=== PATIENT | female | born 1945 | race Caucasian/White ===

== ENCOUNTER 2018-06-20 05:42 | Inpatient (IN) | payer MEDICARE, MEDICAID ==
[~2018-06-20] VITALS: Ht 170.2 cm; Wt 73.6 kg
[2018-06-20] MEDS ORDERED: normal saline 1000ML IV soln IVB ONE (06:10)
[2018-06-20 07:22] LABS: BASOPHILS # (AUTO) 0.1 X10'3 (0-0.2); BASOPHILS % (AUTO) 1.1 % (0-1); EOSINOPHILS # (AUTO) 0.9 X10'3 (0-0.9); EOSINOPHILS % (AUTO) 9.2 % (0-6); HEMATOCRIT 36.7 % (35.0-45.0); HEMOGLOBIN 12.1 g/dl (12.0-16.0); LYMPHOCYTES # (AUTO) 3.1 X10'3 (1.1-4.8); LYMPHOCYTES % (AUTO) 33.7 % (21-51); MEAN CORPUSCULAR HEMOGLOBIN 29.5 PG (27.0-31.0); MEAN CORPUSCULAR VOLUME 89.2 FL (78-98); MEAN PLATELET VOLUME 7.5 FL (7.4-10.4); MONOCYTES # (AUTO) 0.9 X10'3 (0-0.9); MONOCYTES % (AUTO) 9.6 % (2-12); NEUTROPHILS # (AUTO) 4.3 X10'3 (1.8-7.7); NEUTROPHILS % (AUTO) 46.4 % (42-75); PLATELET COUNT 363 X10'3 (140-440); RED BLOOD COUNT 4.11 X10'6 (4.20-5.60); RED CELL DISTRIBUTION WIDTH 13.8 % (11.5-14.5); WHITE BLOOD COUNT 9.3 X10'3 (4.5-11.0)
[2018-06-20 07:29] LABS: INR 3.5 INR; PROTHROMBIN TIME 34.8 SECONDS (9.0-12.0)
[2018-06-20 07:37] LABS: ALANINE AMINOTRANSFERASE 24 U/L (12-78); ALBUMIN 3.3 G/DL (3.4-5.0); ALBUMIN/GLOBULIN RATIO 0.9 (1.1-1.5); ALKALINE PHOSPHATASE 100 IU/L (46-116); ANION GAP 6 (8-16); ASPARTATE AMINO TRANSFERASE 13 U/L (10-37); BILIRUBIN,TOTAL 0.2 MG/DL (0.1-1.0); BLOOD UREA NITROGEN 24 MG/DL (7-18); BUN/CREATININE RATIO 29.3 (6.6-38.0); CALCIUM 8.8 MG/DL (8.5-10.1); CHLORIDE 105 MMOL/L (99-107); CREATININE 0.82 MG/DL (0.40-0.90); GLUCOSE 99 MG/DL (70-104); LIPASE 327 U/L (73-393); POTASSIUM 4.3 MMOL/L (3.5-5.1); SODIUM 139 MMOL/L (135-145); TOTAL CARBON DIOXIDE 28.4 MMOL/L (24-32); TOTAL PROTEIN 7.1 G/DL (6.4-8.2); eGFR 69 ML/MIN
[2018-06-20] MEDS ORDERED: iohexol 300mg/ml 100ml inj. ONE ×2 (07:41→09:31)
[2018-06-20 09:03] LABS: CLARITY,URINE SLIGHTLY CLOUDY (Clear); COLOR,URINE YELLOW (Yellow); GLUCOSE, URINE NEGATIVE (Neg); KETONES,URINE NEGATIVE (Neg); LEUKOCYTE ESTERASE ,URINE SMALL (Neg); NITRITES, URINE NEGATIVE (Neg); OCCULT BLOOD,URINE SMALL (Neg); PROTEIN,URINE NEGATIVE (Neg); UA COLLECTION TYPE CLN CATCH MIDSTREAM; UROBILINOGEN,URINE 0.2 E.U/dL (0.2-1.0)
[2018-06-20 09:09] LABS: HYALINE CASTS 0-3 /LPF (NEGATIVE); MUCUS STRANDS FEW /LPF (Neg); SQUAMOUS EPITHELIAL CELL,UR MODERATE /LPF (FEW)
[2018-06-20 09:10] LABS: BACTERIA,URINE 1+ /HPF (Neg); WBC CLUMPS,URINE FEW /HPF (NEGATIVE)
[2018-06-20] MEDS ORDERED: levoFLOXACIN-Levaquin 500mg/D5 100 ML IV ONE (09:55)
[2018-06-20] MEDS ORDERED: metroNIDAZOLE-Flagyl 500mg/NS 100 ML IV ONE (09:55)
[2018-06-20] MEDS ORDERED: mag hydrox/Alum hydrox/simeth 30ml oral suspension PO PRN (10:30)
[2018-06-20] MEDS ORDERED: ondansetron/PF 4mg/2ml inj IV PRN (10:30)
[2018-06-20] MEDS ORDERED: magnesium hydroxide 30ml (MOM) UD suspension PO PRN (10:30)
[2018-06-20] MEDS ORDERED: acetaminophen 325mg tablet PO PRN (10:30)
[2018-06-20] MEDS ORDERED: diatrozoate meglu/diatrozoate sod (37% iodine) 120ML oral solution ONE ×2 (11:21)
[2018-06-20] MEDS: normal saline 1000ml 1,000 ML IV SCH (12:00)
[2018-06-20 12:55] VITALS: BP 148/66
[2018-06-20] MEDS: morphine 2 MG/ML inj. syringe IV PRN ×2 (13:42→20:11)
[2018-06-20] MEDS: LORazepam 2 mg/ml vial IV PRN ×2 (14:22→20:05)
[2018-06-20 14:55] VITALS: BP 137/50
[2018-06-20] MEDS: metroNIDAZOLE-Flagyl 500mg/NS 100 ML IV SCH (15:36)
[2018-06-20] MEDS ORDERED: MELA3TAB PO (17:51)
[2018-06-20] MEDS ORDERED: WARF-55 PO (17:51)
[2018-06-20] MEDS ORDERED: METO-384 PO (17:51)
[2018-06-20] MEDS ORDERED: ASPI-1265 PO (17:51)
[2018-06-20] MEDS ORDERED: PARO30TA4 PO (17:51)
[2018-06-20] MEDS ORDERED: FAMO20TA8 PO (17:51)
[2018-06-20] MEDS ORDERED: HYDR-3965 PO (17:51)
[2018-06-20] MEDS ORDERED: HALO1TAB PO (17:51)
[2018-06-20] MEDS ORDERED: POTA10CA44 PO (17:51)
[2018-06-20] MEDS ORDERED: VITC500T PO (17:51)
[2018-06-20 20:00] VITALS: BP 150/61
[2018-06-20] MEDS ORDERED: HYDROcodone/acetaminophen 5mg/325mg tablet PO PRN (20:00)
[2018-06-20] MEDS: diatr meglu/diatrizoate 30ml oral sol.-(3 dose) bottle PO SCH (22:01)
[2018-06-20] MEDS: Melatonin 3mg tablet PO SCH (22:01)
[2018-06-20] MEDS: haloperidol 1mg tablet PO SCH (22:01)
[2018-06-20] MEDS: famotidine 20mg tablet PO SCH (22:01)
[2018-06-20] MEDS: heparin, porcine 5000 units/ml vial SQ SCH (22:03)
[2018-06-21] VITALS: BP 140/62
[2018-06-21] MEDS: normal saline 1000ml 1,000 ML IV SCH ×3 (00:05→13:49)
[2018-06-21] MEDS: metroNIDAZOLE-Flagyl 500mg/NS 100 ML IV SCH ×2 (00:05→09:48)
[2018-06-21] MEDS: morphine 2 MG/ML inj. syringe IV PRN ×2 (00:56→20:17)
[2018-06-21 05:52] LABS: BASOPHILS # (AUTO) 0.1 X10'3 (0-0.2); BASOPHILS % (AUTO) 1.3 % (0-1); EOSINOPHILS # (AUTO) 0.7 X10'3 (0-0.9); EOSINOPHILS % (AUTO) 7.9 % (0-6); HEMATOCRIT 34.4 % (35.0-45.0); HEMOGLOBIN 11.6 g/dl (12.0-16.0); LYMPHOCYTES # (AUTO) 2.5 X10'3 (1.1-4.8); LYMPHOCYTES % (AUTO) 29.3 % (21-51); MEAN CORPUSCULAR HEMOGLOBIN 30.1 PG (27.0-31.0); MEAN CORPUSCULAR HGB CONC 33.8 % (33.0-36.5); MEAN CORPUSCULAR VOLUME 89.1 FL (78-98); MEAN PLATELET VOLUME 8.2 FL (7.4-10.4); MONOCYTES # (AUTO) 0.7 X10'3 (0-0.9); MONOCYTES % (AUTO) 7.9 % (2-12); NEUTROPHILS # (AUTO) 4.6 X10'3 (1.8-7.7); NEUTROPHILS % (AUTO) 53.6 % (42-75); PLATELET COUNT 332 X10'3 (140-440); RED BLOOD COUNT 3.86 X10'6 (4.20-5.60); RED CELL DISTRIBUTION WIDTH 13.8 % (11.5-14.5); WHITE BLOOD COUNT 8.6 X10'3 (4.5-11.0)
[2018-06-21 06:00] LABS: ANION GAP 8 (8-16); BLOOD UREA NITROGEN 12 MG/DL (7-18); BUN/CREATININE RATIO 16.9 (6.6-38.0); CALCIUM 8.6 MG/DL (8.5-10.1); CHLORIDE 107 MMOL/L (99-107); CREATININE 0.71 MG/DL (0.40-0.90); GLUCOSE 93 MG/DL (70-104); SODIUM 141 MMOL/L (135-145); TOTAL CARBON DIOXIDE 25.6 MMOL/L (24-32); eGFR 81 ML/MIN
[2018-06-21 06:06] LABS: POTASSIUM 4.2 MMOL/L (3.5-5.1)
[2018-06-21 08:00] VITALS: BP 137/56
[2018-06-21] MEDS: aspirin 81mg tablet.DR PO SCH (08:28)
[2018-06-21] MEDS: famotidine 20mg tablet PO SCH ×2 (08:28→20:16)
[2018-06-21] MEDS: PARoxetine 20mg tablet PO SCH (08:28)
[2018-06-21] MEDS: ascorbic acid 500mg tablet PO SCH (08:29)
[2018-06-21] MEDS: diatr meglu/diatrizoate 30ml oral sol.-(3 dose) bottle PO SCH ×2 (08:29→08:59)
[2018-06-21] MEDS: metoprolol succinate 25mg (24-HOUR) SR. Tablet PO SCH (08:29)
[2018-06-21] MEDS: potassium Cl 20 mEq SR tablet PO SCH (08:29)
[2018-06-21] MEDS: levoFLOXACIN-Levaquin 500mg/D5 100 ML IV SCH (08:30)
[2018-06-21] MEDS: heparin, porcine 5000 units/ml vial SQ SCH ×2 (08:30→20:17)
[2018-06-21] MEDS ORDERED: iohexol 300mg/ml 100ml inj. ONE (08:57)
[2018-06-21] MEDS: haloperidol 1mg tablet PO SCH ×2 (08:59→20:16)
[2018-06-21] MEDS: LORazepam 2 mg/ml vial IV PRN ×3 (09:48→22:52)
[2018-06-21 11:00] VITALS: BP 138/49
[2018-06-21 18:00] VITALS: BP 160/64
[2018-06-21] MEDS: lactobacillus rhamnosus 10,000 MMU CELLS/CAPSULE PO SCH (20:16)
[2018-06-21] MEDS: Melatonin 3mg tablet PO SCH (20:16)
[2018-06-22] VITALS: BP 116/47
[2018-06-22] MEDS: metroNIDAZOLE 500mg tablet PO SCH ×2 (00:21→08:22)
[2018-06-22] MEDS: morphine 2 MG/ML inj. syringe IV PRN (00:25)
[2018-06-22] MEDS: normal saline 1000ml 1,000 ML IV SCH ×2 (00:31→12:30)
[2018-06-22 04:59] LABS: BASOPHILS # (AUTO) 0.2 X10'3 (0-0.2); BASOPHILS % (AUTO) 2.1 % (0-1); EOSINOPHILS # (AUTO) 0.7 X10'3 (0-0.9); EOSINOPHILS % (AUTO) 7.8 % (0-6); HEMATOCRIT 34.3 % (35.0-45.0); HEMOGLOBIN 11.4 g/dl (12.0-16.0); LYMPHOCYTES # (AUTO) 2.9 X10'3 (1.1-4.8); LYMPHOCYTES % (AUTO) 34.1 % (21-51); MEAN CORPUSCULAR HEMOGLOBIN 29.6 PG (27.0-31.0); MEAN CORPUSCULAR HGB CONC 33.1 % (33.0-36.5); MEAN CORPUSCULAR VOLUME 89.5 FL (78-98); MEAN PLATELET VOLUME 8.1 FL (7.4-10.4); MONOCYTES # (AUTO) 0.8 X10'3 (0-0.9); MONOCYTES % (AUTO) 9.3 % (2-12); NEUTROPHILS % (AUTO) 46.7 % (42-75); PLATELET COUNT 322 X10'3 (140-440); RED BLOOD COUNT 3.83 X10'6 (4.20-5.60); RED CELL DISTRIBUTION WIDTH 13.5 % (11.5-14.5); WHITE BLOOD COUNT 8.5 X10'3 (4.5-11.0)
[2018-06-22 05:25] LABS: ALBUMIN 2.9 G/DL (3.4-5.0); ANION GAP 9 (8-16); BLOOD UREA NITROGEN 12 MG/DL (7-18); BUN/CREATININE RATIO 15.6 (6.6-38.0); CALCIUM 8.3 MG/DL (8.5-10.1); CHLORIDE 108 MMOL/L (99-107); CREATININE 0.77 MG/DL (0.40-0.90); GLUCOSE 90 MG/DL (70-104); POTASSIUM 3.7 MMOL/L (3.5-5.1); SODIUM 142 MMOL/L (135-145); TOTAL CARBON DIOXIDE 25.4 MMOL/L (24-32); eGFR 74 ML/MIN
[2018-06-22 07:20] VITALS: BP 108/63
[2018-06-22] MEDS: haloperidol 1mg tablet PO SCH (08:21)
[2018-06-22] MEDS: ascorbic acid 500mg tablet PO SCH (08:22)
[2018-06-22] MEDS: potassium Cl 20 mEq SR tablet PO SCH (08:22)
[2018-06-22] MEDS: famotidine 20mg tablet PO SCH (08:22)
[2018-06-22] MEDS: aspirin 81mg tablet.DR PO SCH (08:22)
[2018-06-22] MEDS: lactobacillus rhamnosus 10,000 MMU CELLS/CAPSULE PO SCH (08:23)
[2018-06-22] MEDS: metoprolol succinate 25mg (24-HOUR) SR. Tablet PO SCH (08:23)
[2018-06-22] MEDS: PARoxetine 20mg tablet PO SCH (08:23)
[2018-06-22] MEDS: levoFLOXACIN-Levaquin 500mg/D5 100 ML IV SCH (08:24)
[2018-06-22] MEDS: heparin, porcine 5000 units/ml vial SQ SCH (08:26)
[2018-06-22] MEDS: LORazepam 2 mg/ml vial IV PRN (10:08)
[2018-06-22 11:35] VITALS: BP 118/53
== END 2018-06-22 14:23 | DRG 690 ==
LOC: ER 05:42 → ED HOLD 10:30 → EDBEDREQ 10:50 → PCU 3S 12:47 → SUR 3N 15:02
PROVIDERS: ADMIT Family Medicine; ATTEND Family Medicine
PROC: BW211ZZ Computerized Tomography (CT Scan) of Abdomen and Pelvis using Low Osmolar Contrast (ICD-10-PCS; principal; 2018-06-21)
DX: N39.0 Urinary tract infection, site not specified (principal); D68.69 Other thrombophilia; K52.9 Noninfective gastroenteritis and colitis, unspecified; B96.20 Unspecified Escherichia coli [E. coli] as the cause of diseases classified elsewhere; F03.90 Unspecified dementia, unspecified severity, without behavioral disturbance, psychotic disturbance, mood disturbance, and anxiety; F20.9 Schizophrenia, unspecified; F41.9 Anxiety disorder, unspecified; G89.29 Other chronic pain; I10 Essential (primary) hypertension; T45.515A Adverse effect of anticoagulants, initial encounter; Z93.3 Colostomy status; Z88.2 Allergy status to sulfonamides; Z79.01 Long term (current) use of anticoagulants; Z86.73 Personal history of transient ischemic attack (TIA), and cerebral infarction without residual deficits; Y92.89 Other specified places as the place of occurrence of the external cause
CPT/HCPCS: 36415; 74176; 74177; 80048; 80053; 81001; 83690; 85025; 85610; 87070; 87077; 87088; 87186; 97116; 97161; 97530; 99285; J1644; J1956; J2060; J2270; J3490; J7030; Q9963; Q9967

== ENCOUNTER 2018-07-16 15:16 | Day surgery (SDC) | payer MEDICARE, MEDICAID ==
[~2018-07-16] VITALS: Ht 170.2 cm; Wt 63.6 kg
[~2018-07-16 15:16] MED LIST: ASPI-1265 PO; FAMO20TA8 PO; HALO1TAB PO; HYDR-3965 PO; MELA3TAB PO; METO-384 PO; PARO30TA4 PO; POTA10CA44 PO; VITC500T PO; WARF-55 PO
[2018-07-16 15:30] VITALS: BP 149/78
[2018-07-16] MEDS ORDERED: MAG-54 PO (15:42)
[2018-07-16] MEDS ORDERED: MAGN400O6 PO (15:43)
[2018-07-16] MEDS ORDERED: POLY17PO10 PO (15:43)
[2018-07-16] MEDS ORDERED: fentaNYL/PF 50MCG/1 ML 2ML syringe ONE (15:44)
[2018-07-16] MEDS ORDERED: NA P133E4 RC (15:44)
[2018-07-16] MEDS ORDERED: MIDAZolam 5mg/5ml vial ONE (15:44)
[2018-07-16 16:32] VITALS: BP 140/73
[2018-07-16 16:42] VITALS: BP 152/76
[2018-07-16 16:52] VITALS: BP 149/73
== END 2018-07-16 17:00 | disposition home or self-care (01) ==
LOC: GI LAB 15:16
PROVIDERS: ATTEND Internal Medicine Gastroenterology
DX: D12.4 Benign neoplasm of descending colon (principal); K62.1 Rectal polyp; K64.8 Other hemorrhoids; Z93.3 Colostomy status
CPT/HCPCS: 44389; 44394; 99153; G0500; J2250; J3010; J7030; 99152; A4620

== ENCOUNTER 2018-10-17 13:45 | Inpatient (IN) | payer MEDICARE, MEDICAID ==
[~2018-10-17] VITALS: Ht 170.2 cm; Wt 63.6 kg
[~2018-10-17 13:45] MED LIST changes: +MAG-54 PO; +MAGN400O6 PO; +NA P133E4 RC; +POLY17PO10 PO
[2018-10-17] MEDS ORDERED: HALO1TAB PO (14:21)
[2018-10-17] MEDS ORDERED: HALO0.5T PO (14:22)
[2018-10-17] MEDS ORDERED: ASCO-23 PO (14:23)
[2018-10-17] MEDS ORDERED: ASPI-1265 PO (14:24)
[2018-10-17 14:25] LABS: BASOPHILS # (AUTO) 0.1 X10'3 (0-0.2); BASOPHILS % (AUTO) 0.9 % (0-1); EOSINOPHILS # (AUTO) 0.9 X10'3 (0-0.9); EOSINOPHILS % (AUTO) 7.3 % (0-6); HEMATOCRIT 40.5 % (35.0-45.0); HEMOGLOBIN 13.4 g/dl (12.0-16.0); LYMPHOCYTES # (AUTO) 2.3 X10'3 (1.1-4.8); LYMPHOCYTES % (AUTO) 19.4 % (21-51); MEAN CORPUSCULAR HEMOGLOBIN 29.7 PG (27.0-31.0); MEAN CORPUSCULAR HGB CONC 33.2 % (33.0-36.5); MEAN CORPUSCULAR VOLUME 89.5 FL (78-98); MEAN PLATELET VOLUME 7.8 FL (7.4-10.4); MONOCYTES # (AUTO) 0.9 X10'3 (0-0.9); MONOCYTES % (AUTO) 8.1 % (2-12); NEUTROPHILS # (AUTO) 7.5 X10'3 (1.8-7.7); NEUTROPHILS % (AUTO) 64.3 % (42-75); PLATELET COUNT 346 X10'3 (140-440); RED BLOOD COUNT 4.52 X10'6 (4.20-5.60); RED CELL DISTRIBUTION WIDTH 13.3 % (11.5-14.5); WHITE BLOOD COUNT 11.6 X10'3 (4.5-11.0)
[2018-10-17] MEDS ORDERED: WARF2.5T PO (14:26)
[2018-10-17] MEDS ORDERED: WARF2TAB PO (14:26)
[2018-10-17] MEDS ORDERED: WARF1TAB PO (14:27)
[2018-10-17] MEDS ORDERED: BISA10SU8 RC (14:27)
[2018-10-17] MEDS ORDERED: FAMO20TA8 PO (14:28)
[2018-10-17] MEDS ORDERED: MELA3TAB PO (14:29)
[2018-10-17] MEDS ORDERED: HYDR-3965 PO (14:30)
[2018-10-17] MEDS ORDERED: METO50TA7 PO (14:31)
[2018-10-17] MEDS ORDERED: PARO-62 PO (14:31)
[2018-10-17] MEDS ORDERED: POTA-82 PO (14:32)
[2018-10-17 14:37] LABS: PROTHROMBIN TIME 28.4 SECONDS (9.0-12.0)
[2018-10-17 14:40] LABS: ALANINE AMINOTRANSFERASE 24 U/L (12-78); ALBUMIN 3.4 G/DL (3.4-5.0); ALBUMIN/GLOBULIN RATIO 0.8 (1.1-1.5); ALKALINE PHOSPHATASE 107 IU/L (46-116); ANION GAP 7 (8-16); ASPARTATE AMINO TRANSFERASE 15 U/L (10-37); BILIRUBIN,TOTAL 0.9 MG/DL (0.1-1.0); BLOOD UREA NITROGEN 17 MG/DL (7-18); BUN/CREATININE RATIO 18.7 (6.6-38.0); CALCIUM 8.8 MG/DL (8.5-10.1); CHLORIDE 103 MMOL/L (99-107); CREATININE 0.91 MG/DL (0.40-0.90); GLUCOSE 123 MG/DL (70-104); POTASSIUM 4.4 MMOL/L (3.5-5.1); SODIUM 136 MMOL/L (135-145); TOTAL CARBON DIOXIDE 26.1 MMOL/L (24-32); TOTAL PROTEIN 7.6 G/DL (6.4-8.2); eGFR 61 ML/MIN
[2018-10-17] MEDS ORDERED: phytonadione inj. 5 MG in normal saline 100ml IV soln 99.5 ML IV ONE (14:40)
[2018-10-17 14:55] LABS: CLARITY,URINE CLOUDY (Clear); COLOR,URINE YELLOW (Yellow); GLUCOSE, URINE NEGATIVE (Neg); KETONES,URINE NEGATIVE (Neg); LEUKOCYTE ESTERASE ,URINE LARGE (Neg); NITRITES, URINE POSITIVE (Neg); OCCULT BLOOD,URINE TRACE-INTACT (Neg); PH,URINE 8.5 (4.8-8.0); PROTEIN,URINE NEGATIVE (Neg); UROBILINOGEN,URINE 0.2 E.U/dL (0.2-1.0)
[2018-10-17 15:00] LABS: UA COLLECTION TYPE CLN CATCH MIDSTREAM
[2018-10-17] MEDS: morphine 4 MG/ML inj SYRINge IV PRN ×3 (15:03→23:04)
[2018-10-17 15:04] LABS: BACTERIA,URINE 3+ /HPF (Neg); SQUAMOUS EPITHELIAL CELL,UR MANY /LPF (FEW)
[2018-10-17 15:05] LABS: WBC,URINE 0-4 /HPF (0-4)
--- NOTE | 2018-10-17 15:07 | NUR ---
relieving RN for break, pt is resting quietly on gurney, resp even and unlabored, medicated per MD order,
--- NOTE | 2018-10-17 15:51 | NUR ---
RAMA GTZ INFORMED OF PT NECK PAIN, ORDERS TO FOLLOW.
--- NOTE | 2018-10-17 16:25 | NUR ---
REMOVED PREVIOUSLY PLACED FOLEYCATH, DUE TO NO OUTPUT, RITCHIE GRAY RN, DANIAL ALVAREZ AND GILDA ANDERSON ASSISTED TO HAVE NEW CATH PLACED VIA STERILE TECHNIQUE
--- NOTE | 2018-10-17 16:35 | NUR ---
PT TO DOWNSTAIRS CT WITH ARC CUTTER AND PT DAUGHTER, PER ORDERS
[2018-10-17 16:57] LABS: CLARITY,URINE CLOUDY (Clear); COLOR,URINE YELLOW (Yellow); GLUCOSE, URINE NEGATIVE (Neg); KETONES,URINE NEGATIVE (Neg); LEUKOCYTE ESTERASE ,URINE SMALL (Neg); NITRITES, URINE NEGATIVE (Neg); OCCULT BLOOD,URINE TRACE-LYSED (Neg); PH,URINE 7.5 (4.8-8.0); PROTEIN,URINE NEGATIVE (Neg); UROBILINOGEN,URINE 0.2 E.U/dL (0.2-1.0)
[2018-10-17 17:07] LABS: BACTERIA,URINE 2+ /HPF (Neg); MUCUS STRANDS MODERATE /LPF (Neg); SQUAMOUS EPITHELIAL CELL,UR MANY /LPF (FEW); UA COLLECTION TYPE FOLEY CATH
--- NOTE | 2018-10-17 17:07 | NUR ---
PT DAUGHTER ASHLEY Raymond# [phone] IS [employer]ICAL P[employer] OF [employer], GAVE HER INFO TO THONY IN REGISTRATION
[2018-10-17] MEDS ORDERED: magnesium 2GM in 50ml NS 50 ML IV PRN ×2 (18:30→22:00)
[2018-10-17] MEDS ORDERED: acetaminophen 325mg tablet PO PRN (18:30)
[2018-10-17] MEDS ORDERED: mag hydrox/Alum hydrox/simeth 30ml oral suspension PO PRN (18:30)
[2018-10-17] MEDS ORDERED: ipratropium/albuterol 3ml nebule NEB PRN (18:30)
[2018-10-17] MEDS ORDERED: ondansetron/PF 4mg/2ml inj IV PRN (18:30)
[2018-10-17] MEDS ORDERED: magnesium 4gm in 100ml NS 100 ML IV PRN ×2 (18:30→22:00)
[2018-10-17] MEDS ORDERED: potassium Cl 40MEQ/NS 500ml 500 ML IV PRN ×4 (18:30→22:00)
[2018-10-17] MEDS ORDERED: magnesium hydroxide 30ml (MOM) UD suspension PO PRN (18:30)
[2018-10-17] MEDS ORDERED: morphine 4 MG/ML inj SYRINge IV PRN ×2 (18:30)
[2018-10-17] MEDS ORDERED: potassium Cl 20 mEq SR tablet PO PRN ×4 (18:30→22:00)
[2018-10-17] MEDS: normal saline 1000ml 1,000 ML IV SCH (19:37)
[2018-10-17] MEDS: CefTRIAXone/D5W-Rocephin 1gm 50 ML IV SCH (19:37)
[2018-10-17] MEDS: lactobacillus rhamnosus 10,000 MMU CELLS/CAPSULE PO SCH (19:37)
[2018-10-17] MEDS: famotidine 20mg tablet PO SCH (19:38)
--- NOTE | 2018-10-17 19:48 | NUR ---
pt sleeping when entering room. easily awakens. IV abx infusing and lab at bedside for cultures and lactic
[2018-10-17] MEDS ORDERED: haloperidol 10mg/5ml UD oral solution PO SCH (20:00)
--- NOTE | 2018-10-17 20:51 | NUR ---
Patient in room ED 1. I have received report from JUSTIN Hanna and had the opportunity to ask questions and assume patient care.
[2018-10-17] MEDS: Melatonin 3mg tablet PO PRN (21:09)
[2018-10-17 21:26] VITALS: BP 187/84
[2018-10-17] MEDS ORDERED: haloperidol 1mg tablet PO SCH (22:00)
[2018-10-17] MEDS ORDERED: magnesium Cl slow-release 64mg tablet PO PRN (22:00)
[2018-10-17] MEDS ORDERED: haloperidol 10mg/5ml UD oral solution PO ONE (22:50)
[2018-10-17 22:54] VITALS: BP 165/67
[2018-10-18] VITALS (18 sets, daily range): BP systolic 117–192; BP diastolic 48–74
[2018-10-18] MEDS: morphine 4 MG/ML inj SYRINge IV PRN ×6 (03:52→22:02)
[2018-10-18] MEDS: normal saline 1000ml 1,000 ML IV SCH ×3 (04:49→19:58)
--- NOTE | 2018-10-18 06:36 | NUR ---
Problems reprioritized. Patient report given, questions answered & plan of care reviewed with JUSTIN Simpson.
[2018-10-18 07:20] LABS: BASOPHILS # (AUTO) 0.1 X10'3 (0-0.2); BASOPHILS % (AUTO) 0.7 % (0-1); EOSINOPHILS # (AUTO) 0.7 X10'3 (0-0.9); EOSINOPHILS % (AUTO) 7.9 % (0-6); HEMATOCRIT 38.5 % (35.0-45.0); HEMOGLOBIN 12.8 g/dl (12.0-16.0); LYMPHOCYTES # (AUTO) 1.7 X10'3 (1.1-4.8); LYMPHOCYTES % (AUTO) 18.6 % (21-51); MEAN CORPUSCULAR HEMOGLOBIN 29.9 PG (27.0-31.0); MEAN CORPUSCULAR HGB CONC 33.2 % (33.0-36.5); MEAN PLATELET VOLUME 8.1 FL (7.4-10.4); MONOCYTES # (AUTO) 0.7 X10'3 (0-0.9); MONOCYTES % (AUTO) 7.5 % (2-12); NEUTROPHILS # (AUTO) 5.9 X10'3 (1.8-7.7); NEUTROPHILS % (AUTO) 65.3 % (42-75); PLATELET COUNT 274 X10'3 (140-440); RED BLOOD COUNT 4.27 X10'6 (4.20-5.60); RED CELL DISTRIBUTION WIDTH 13.7 % (11.5-14.5); WHITE BLOOD COUNT 9.1 X10'3 (4.5-11.0)
[2018-10-18 07:39] LABS: ALANINE AMINOTRANSFERASE 165 U/L (12-78); ALBUMIN 3.1 G/DL (3.4-5.0); ALBUMIN/GLOBULIN RATIO 0.8 (1.1-1.5); ALKALINE PHOSPHATASE 151 IU/L (46-116); ANION GAP 10 (8-16); ASPARTATE AMINO TRANSFERASE 122 U/L (10-37); BILIRUBIN,TOTAL 1.3 MG/DL (0.1-1.0); BLOOD UREA NITROGEN 14 MG/DL (7-18); BUN/CREATININE RATIO 17.9 (6.6-38.0); CALCIUM 8.3 MG/DL (8.5-10.1); CHLORIDE 105 MMOL/L (99-107); CHOL/HDL RATIO 2.9 (0.00-4.99); CHOLESTEROL 140 MG/DL (0-200); CREATININE 0.78 MG/DL (0.40-0.90); GLUCOSE 113 MG/DL (70-104); HDL CHOLESTEROL 48 MG/DL (35-60); LDL CHOLESTEROL 84 MG/DL (50-100); POTASSIUM 4.2 MMOL/L (3.5-5.1); SODIUM 140 MMOL/L (135-145); TOTAL CARBON DIOXIDE 25.2 MMOL/L (24-32); TOTAL PROTEIN 7.1 G/DL (6.4-8.2); TRIGLYCERIDES 64 MG/DL (20-135); eGFR 73 ML/MIN
[2018-10-18] MEDS: CefTRIAXone/D5W-Rocephin 1gm 50 ML IV SCH (07:40)
[2018-10-18] MEDS: lactobacillus rhamnosus 10,000 MMU CELLS/CAPSULE PO SCH ×2 (07:40→19:50)
[2018-10-18] MEDS: famotidine 20mg tablet PO SCH ×2 (07:41→19:50)
[2018-10-18] MEDS: PARoxetine 20mg tablet PO SCH (07:41)
[2018-10-18] MEDS: metoprolol succinate 25mg (24-HOUR) SR. Tablet PO SCH (07:43)
[2018-10-18] MEDS: haloperidol 10mg/5ml UD oral solution PO SCH ×2 (07:55→19:50)
[2018-10-18] MEDS: ascorbic acid 500mg tablet PO SCH (08:00)
[2018-10-18] MEDS: K and/or MAG REPLACEMENT MC SCH (08:00)
[2018-10-18 08:16] LABS: PROTHROMBIN TIME 11.9 SECONDS (9.0-12.0)
[2018-10-18 08:18] LABS: INR 1.2 INR
[2018-10-18] MEDS ORDERED: ceFAZolin 1GM/D5W- ADD-VANTAGE 50 ML IV ONE (12:00)
--- NOTE | 2018-10-18 12:01 | NUR ---
PAGER ID: [phone] MESSAGE: sarah [phone] re Kamilah Callaway in 4020a- her BP is 192/63, we gave Toprol 50 mg this am. Will go to surgery today joseph Branodn. INR down to 1.2
[2018-10-18] MEDS ORDERED: hydrALAZINE 20mg/ml inj. IV PRN (12:05)
[2018-10-18 13:54] LABS: ALANINE AMINOTRANSFERASE 143 U/L (12-78); ALBUMIN 3.1 G/DL (3.4-5.0); ALBUMIN/GLOBULIN RATIO 0.8 (1.1-1.5); ALKALINE PHOSPHATASE 148 IU/L (46-116); ASPARTATE AMINO TRANSFERASE 86 U/L (10-37); BILIRUBIN,DIRECT 0.4 MG/DL (0-0.3); BILIRUBIN,TOTAL 1.2 MG/DL (0.1-1.0)
[2018-10-18] MEDS ORDERED: sevoflurane 250ml liquid IH ONE (15:04)
[2018-10-18] MEDS ORDERED: fentaNYL/PF 50MCG/1 ML 2ML syringe ONE (15:08)
[2018-10-18] MEDS ORDERED: propofol inj 20 ML IV ONE (15:08)
[2018-10-18] MEDS ORDERED: ePHEDrine 50MG/ML INJ. ONE (15:39)
[2018-10-18] MEDS ORDERED: ringers solution, lacted 1,000 ML IV SCH (15:44)
[2018-10-18] MEDS ORDERED: proCHLORperazine 10 MG/2 ml inj IV PRN (15:45)
[2018-10-18] MEDS ORDERED: ondansetron/PF 4mg/2ml inj IV PRN (15:45)
[2018-10-18] MEDS ORDERED: morphine 4 MG/ML inj SYRINge IV PRN ×2 (15:45)
[2018-10-18] MEDS ORDERED: meperidine/PF 25mg/ml syringe IV PRN ×3 (15:45)
[2018-10-18] MEDS ORDERED: bisacodyl 10mg suppository rectal RC PRN (16:00)
[2018-10-18] MEDS ORDERED: diphenhydrAMINE 25mg capsule PO PRN ×2 (16:00)
[2018-10-18] MEDS ORDERED: acetaminophen 325mg tablet PO PRN (16:00)
[2018-10-18] MEDS ORDERED: magnesium hydroxide 30ml (MOM) UD suspension PO PRN (16:00)
--- NOTE | 2018-10-18 16:50 | NUR ---
PATIENT A&OX4, DENIES PAIN, V/S WNL, NEUROVASCULAR CHECKS INTACT, 20G PIV LUE , DRESSING TO LEFT HIP CDI W/ COLD POWDER PACK W/ SCD ON. F/C DRAINING CLEAR YELLOW URINE. PATIENT TAKEN TO WITH ALL BELONGINGS AND HOOKED UP TO MONITORS IN ROOM 4020A AND REPORT GIVEN TO TESSA PERKINS RN WHO HAS TAKEN OVER PATIENT CARE.
[2018-10-18] MEDS: ceFAZolin 1GM/D5W- ADD-VANTAGE 50 ML IV SCH ×2 (17:44→23:44)
--- NOTE | 2018-10-18 18:25 | NUR ---
Patient in room ORTHO 4020. I have received report from JUSTIN Simpson and had the opportunity to ask questions and assume patient care.
--- NOTE | 2018-10-18 18:59 | NUR ---
I agree with all meds, assessments and interventions performed by Renetta Collins, Student JUSTIN Addendum: 10/18/18 at 1901 by Li Oh RN Correction: name is mariel Best, student JUSTIN
[2018-10-18] MEDS: sennosides 8.6mg tablet PO SCH (20:03)
[2018-10-18] MEDS: Melatonin 3mg tablet PO PRN (20:06)
[2018-10-18] MEDS ORDERED: warfarin 5mg tablet PO SCH (21:00)
[2018-10-19] VITALS (11 sets, daily range): BP systolic 109–166; BP diastolic 44–84
[2018-10-19] MEDS: normal saline 1000ml 1,000 ML IV SCH ×2 (04:53→21:05)
[2018-10-19] MEDS: morphine 4 MG/ML inj SYRINge IV PRN ×2 (04:53→11:48)
--- NOTE | 2018-10-19 06:34 | NUR ---
Problems reprioritized. Patient report given, questions answered & plan of care reviewed with JUSTIN Simpson and JUSTIN Jackson.
[2018-10-19 07:50] LABS: INR 1.1 INR; PROTHROMBIN TIME 10.9 SECONDS (9.0-12.0)
[2018-10-19 07:55] LABS: ALANINE AMINOTRANSFERASE 89 U/L (12-78); ALBUMIN 2.8 G/DL (3.4-5.0); ALBUMIN/GLOBULIN RATIO 0.7 (1.1-1.5); ALKALINE PHOSPHATASE 132 IU/L (46-116); ANION GAP 11 (8-16); ASPARTATE AMINO TRANSFERASE 42 U/L (10-37); BILIRUBIN,TOTAL 1.1 MG/DL (0.1-1.0); BLOOD UREA NITROGEN 12 MG/DL (7-18); BUN/CREATININE RATIO 14.8 (6.6-38.0); CALCIUM 8.4 MG/DL (8.5-10.1); CHLORIDE 108 MMOL/L (99-107); CREATININE 0.81 MG/DL (0.40-0.90); GLUCOSE 109 MG/DL (70-104); MAGNESIUM 1.9 MG/DL (1.5-2.4); POTASSIUM 3.8 MMOL/L (3.5-5.1); SODIUM 143 MMOL/L (135-145); TOTAL CARBON DIOXIDE 24.4 MMOL/L (24-32); TOTAL PROTEIN 6.8 G/DL (6.4-8.2); eGFR 70 ML/MIN
[2018-10-19] MEDS: K and/or MAG REPLACEMENT MC SCH (08:00)
[2018-10-19] MEDS: CefTRIAXone/D5W-Rocephin 1gm 50 ML IV SCH (08:11)
[2018-10-19] MEDS: haloperidol 10mg/5ml UD oral solution PO SCH ×2 (08:11→21:03)
[2018-10-19] MEDS: lactobacillus rhamnosus 10,000 MMU CELLS/CAPSULE PO SCH ×2 (08:11→21:03)
[2018-10-19] MEDS: PARoxetine 20mg tablet PO SCH (08:12)
[2018-10-19] MEDS: famotidine 20mg tablet PO SCH ×2 (08:12→21:03)
[2018-10-19] MEDS: ascorbic acid 500mg tablet PO SCH (08:13)
[2018-10-19] MEDS: metoprolol succinate 25mg (24-HOUR) SR. Tablet PO SCH (08:13)
[2018-10-19] MEDS: enoxaparin 40mg/0.4ml syringe SQ SCH (08:16)
--- NOTE | 2018-10-19 11:07 | NUR ---
PAGER ID: [phone] MESSAGE: Shyla [phone] re [phone] Kamilah Callaway- Can we start some PO pain meds for her? [place] 10 1-2 for mod/severe Q4? Then we can use the IV for breakthrough if necessary. Also, redraw labs? They were cancelled
[2018-10-19 11:18] LABS: BASOPHILS % (AUTO) 0.3 % (0-1); EOSINOPHILS # (AUTO) 0.5 X10'3 (0-0.9); EOSINOPHILS % (AUTO) 5.3 % (0-6); HEMATOCRIT 34.2 % (35.0-45.0); HEMOGLOBIN 11.3 g/dl (12.0-16.0); LYMPHOCYTES # (AUTO) 1.5 X10'3 (1.1-4.8); MEAN CORPUSCULAR HEMOGLOBIN 29.8 PG (27.0-31.0); MEAN CORPUSCULAR HGB CONC 33.1 % (33.0-36.5); MEAN CORPUSCULAR VOLUME 90.3 FL (78-98); MONOCYTES % (AUTO) 11.3 % (2-12); NEUTROPHILS # (AUTO) 6.1 X10'3 (1.8-7.7); NEUTROPHILS % (AUTO) 67.1 % (42-75); PLATELET COUNT 272 X10'3 (140-440); RED BLOOD COUNT 3.79 X10'6 (4.20-5.60); RED CELL DISTRIBUTION WIDTH 13.9 % (11.5-14.5); WHITE BLOOD COUNT 9.1 X10'3 (4.5-11.0)
[2018-10-19] MEDS: HYDROcodone/acetaminophen 10/325mg tab PO PRN ×2 (13:47→21:04)
[2018-10-19] MEDS: levoFLOXACIN 750MG TABLET PO SCH (17:31)
--- NOTE | 2018-10-19 18:23 | NUR ---
Patient in room ORTHO 4020. I have received report from Tatiana ANDERSON and had the opportunity to ask questions and assume patient care.
[2018-10-19] MEDS ORDERED: warfarin 5mg tablet PO ONE (21:00)
[2018-10-19] MEDS: sennosides 8.6mg tablet PO SCH (21:04)
[2018-10-20] MEDS: HYDROcodone/acetaminophen 10/325mg tab PO PRN ×2 (05:17→13:44)
[2018-10-20 06:00] VITALS: BP 156/62
[2018-10-20] MEDS: normal saline 1000ml 1,000 ML IV SCH (06:30)
--- NOTE | 2018-10-20 06:30 | NUR ---
Problems reprioritized. Patient report given, questions answered & plan of care reviewed with Tatiana ANDERSON.
[2018-10-20 07:47] LABS: BASOPHILS % (AUTO) 0.6 % (0-1); EOSINOPHILS # (AUTO) 0.8 X10'3 (0-0.9); HEMATOCRIT 31.1 % (35.0-45.0); HEMOGLOBIN 10.3 g/dl (12.0-16.0); LYMPHOCYTES # (AUTO) 1.6 X10'3 (1.1-4.8); MEAN CORPUSCULAR HEMOGLOBIN 30.1 PG (27.0-31.0); MEAN CORPUSCULAR HGB CONC 33.2 % (33.0-36.5); MEAN CORPUSCULAR VOLUME 90.5 FL (78-98); MEAN PLATELET VOLUME 8.2 FL (7.4-10.4); MONOCYTES % (AUTO) 13.7 % (2-12); NEUTROPHILS # (AUTO) 4.1 X10'3 (1.8-7.7); NEUTROPHILS % (AUTO) 53.7 % (42-75); PLATELET COUNT 242 X10'3 (140-440); RED BLOOD COUNT 3.43 X10'6 (4.20-5.60); RED CELL DISTRIBUTION WIDTH 13.7 % (11.5-14.5); WHITE BLOOD COUNT 7.6 X10'3 (4.5-11.0)
[2018-10-20 07:50] VITALS: BP 158/70
[2018-10-20 08:11] LABS: INR 1.1 INR; PROTHROMBIN TIME 11.4 SECONDS (9.0-12.0)
[2018-10-20 08:20] LABS: ALANINE AMINOTRANSFERASE 54 U/L (12-78); ALBUMIN 2.5 G/DL (3.4-5.0); ALBUMIN/GLOBULIN RATIO 0.7 (1.1-1.5); ALKALINE PHOSPHATASE 110 IU/L (46-116); ANION GAP 11 (8-16); ASPARTATE AMINO TRANSFERASE 18 U/L (10-37); BILIRUBIN,TOTAL 0.7 MG/DL (0.1-1.0); BLOOD UREA NITROGEN 11 MG/DL (7-18); BUN/CREATININE RATIO 15.9 (6.6-38.0); CALCIUM 8.2 MG/DL (8.5-10.1); CHLORIDE 108 MMOL/L (99-107); CREATININE 0.69 MG/DL (0.40-0.90); GLUCOSE 97 MG/DL (70-104); MAGNESIUM 1.7 MG/DL (1.5-2.4); POTASSIUM 3.2 MMOL/L (3.5-5.1); SODIUM 142 MMOL/L (135-145); TOTAL CARBON DIOXIDE 23.2 MMOL/L (24-32); TOTAL PROTEIN 6.3 G/DL (6.4-8.2); eGFR 84 ML/MIN
[2018-10-20] MEDS: lactobacillus rhamnosus 10,000 MMU CELLS/CAPSULE PO SCH (08:28)
[2018-10-20] MEDS: ascorbic acid 500mg tablet PO SCH (08:30)
[2018-10-20] MEDS: famotidine 20mg tablet PO SCH (08:30)
[2018-10-20] MEDS: levoFLOXACIN 750MG TABLET PO SCH (08:30)
[2018-10-20] MEDS: PARoxetine 20mg tablet PO SCH (08:30)
[2018-10-20] MEDS: haloperidol 10mg/5ml UD oral solution PO SCH (08:30)
[2018-10-20] MEDS: metoprolol succinate 25mg (24-HOUR) SR. Tablet PO SCH (08:30)
[2018-10-20] MEDS: enoxaparin 40mg/0.4ml syringe SQ SCH (08:31)
[2018-10-20] MEDS: morphine 4 MG/ML inj SYRINge IV PRN ×2 (08:33→08:55)
--- NOTE | 2018-10-20 08:56 | NUR ---
unable to give 4mg of morphine due to painful, reddened IV site; 2mg were given; Bob HASKINS and Tatiana Haskins witnessed waste. [facility]
[2018-10-20 10:00] VITALS: BP 122/55
[2018-10-20] MEDS ORDERED: LEVO750T46 PO (11:47)
[2018-10-20] MEDS ORDERED: potassium Cl oral solution 20 MEQ/15 ML PO ONE (12:05)
[2018-10-20] MEDS: K and/or MAG REPLACEMENT MC SCH (13:46)
[2018-10-20] MEDS ORDERED: warfarin 7.5mg tablet PO ONE (21:00)
== END 2018-10-20 16:23 | DRG 481 ==
LOC: ER 13:46 → ED HOLD 18:30 → ORTHO 4S 21:03
PROVIDERS: ADMIT Family Medicine; ATTEND Family Medicine
PROC: 0QS734Z Reposition Left Upper Femur with Internal Fixation Device, Percutaneous Approach (ICD-10-PCS; principal; 2018-10-18 15:04)
DX: S72.002A Fracture of unspecified part of neck of left femur, initial encounter for closed fracture (principal); D68.69 Other thrombophilia; N39.0 Urinary tract infection, site not specified; D68.61 Antiphospholipid syndrome; F20.9 Schizophrenia, unspecified; M85.80 Other specified disorders of bone density and structure, unspecified site; B96.20 Unspecified Escherichia coli [E. coli] as the cause of diseases classified elsewhere; W06.XXXA Fall from bed, initial encounter; F03.90 Unspecified dementia, unspecified severity, without behavioral disturbance, psychotic disturbance, mood disturbance, and anxiety; M46.90 Unspecified inflammatory spondylopathy, site unspecified; I10 Essential (primary) hypertension; Z98.51 Tubal ligation status; Z74.01 Bed confinement status; Z88.2 Allergy status to sulfonamides; Z79.01 Long term (current) use of anticoagulants; Z86.73 Personal history of transient ischemic attack (TIA), and cerebral infarction without residual deficits; Z87.891 Personal history of nicotine dependence; Y92.003 Bedroom of unspecified non-institutional (private) residence as the place of occurrence of the external cause; Y99.8 Other external cause status; Y93.89 Activity, other specified
CPT/HCPCS: 36415; 71045; 72125; 73502; 76000; 80053; 80061; 80076; 81001; 83605; 83735; 85025; 85610; 86885; 86900; 86901; 87040; 87070; 87077; 87088; 87186; 93005; 94760; 96365; 96375; 96376; 97110; 97116; 97162; 97530; 99285; G0378; J0360; J0690; J0696; J1650; J2270; J2704; J3010; J3370; J3430; J7030; J7120